=== PATIENT | female | born 1980 | race Asian ===

== ENCOUNTER 2024-11-13 12:18 | Emergency (ER) | payer OTHER ==
[~2024-11-13] VITALS: Ht 162.6 cm; Wt 65.0 kg
[2024-11-13 12:20] VITALS: TEMP 98; O2SAT 99
[2024-11-13 14:01] LABS: CHLORIDE 108 mEq/L (98-107); SODIUM 141 mEq/L (136-145)
[2024-11-13 14:02] LABS: CALCIUM 9.1 mg/dL (8.7-10.4); CARBON DIOXIDE 23 mEq/L (21-32)
[2024-11-13 14:07] LABS: CREATININE 0.7 mg/dL (0.6-1.0); GLUCOSE 86 mg/dL (70-105); UREA NITROGEN BLOOD 8 mg/dL (9-23)
[2024-11-13 14:17] LABS: BASOPHILS % 0.3 % (0.0-2.0); EOSINOPHILS % 1.5 % (0.0-5.0); HEMATOCRIT. 38.9 % (36.0-48.0); HEMOGLOBIN. 12.8 g/dL (12.0-16.0); LYMPHOCYTES % 23.5 % (20.0-50.0); MEAN CORPUSCULAR HEMOGLOBIN 32.2 pg (28.0-32.0); MEAN CORPUSCULAR HGB CONC 32.8 g/dL (31.0-37.0); MEAN PLATELET VOLUME 8.9 fl (7.4-10.4); MONOCYTES % 4.7 % (2.0-8.0); PLATELET 230 x1000/uL (130-400); RED BLOOD CELL COUNT 3.97 mill/uL (4.2-5.4); RED CELL DISTRIBUTION WIDTH 13.2 % (11.6-14.6); WHITE BLOOD COUNT 6.9 x1000/uL (4.5-11.0)
[2024-11-13 14:49] LABS: TROPONIN I HIGH SENSITIVITY 64 ng/L (3.0-34)
[2024-11-13 17:35] VITALS: BP 100/63; PULSE 77; RESP 12; O2SAT 99
[2024-11-13] MEDS ORDERED: DILTIAZEM HCL 30MG TABLET PO SCH (22:00)
== END 2024-11-13 17:46 | disposition short-term general hospital (02) ==
LOC: ER 12:31
DX: I47.10 Supraventricular tachycardia, unspecified (principal); R79.89 Other specified abnormal findings of blood chemistry
CPT/HCPCS: 80048; 85025; 84484; 36415; 71045; 93005; 99285; Z7610; A4663; A4606